=== PATIENT | male | born 1950 | race Two or more races ===

== ENCOUNTER 2022-12-25 16:10 | Emergency (ER) | payer OTHER ==
[~2022-12-25] VITALS: Ht 182.9 cm; Wt 122.5 kg
== END 2022-12-25 22:00 | disposition home or self-care (01) ==
LOC: ER 16:10
DX: R07.89 Other chest pain (principal); K20.90 Esophagitis, unspecified without bleeding; E11.9 Type 2 diabetes mellitus without complications; I10 Essential (primary) hypertension; E66.01 Morbid (severe) obesity due to excess calories; I50.9 Heart failure, unspecified